=== PATIENT | male | born 1965 | race Caucasian/White ===

== ENCOUNTER 2017-02-16 06:48 | Day surgery (SDC) | payer OTHER ==
[2017-02-12 08:46] VITALS: BMI 26.2
[~2017-02-16 06:48] MED LIST: LACTATED RINGERS 1,000 ML IV SCH; LIDOCAINE 1% 20 ML VIAL (10MG/ML) FOR IV START INTRADERMA PRN
[2017-02-16 07:20] VITALS: TEMP 98.8
[2017-02-16] MEDS ORDERED: PROPOFOL 10 MG/ML 20 ML VIAL IV ONE (07:30)
--- NOTE | 2017-02-16 08:33 | P.PCN ---
Date of Procedure: 02/16/17 Preoperative Diagnosis: Screening colonoscopy Postoperative Diagnosis: Internal hemorrhoids, diverticuli Procedure(s) Performed: Colonoscopy Anesthesia: MAC Surgeon: Leeann Green Estimated Blood Loss (ml): 0 IV fluids (ml): 550 Pathology: none sent Condition: stable Disposition: PACU Indications for Procedure: Screening colonoscopy Operative Findings: Internal hemorrhoids, scattered diverticuli Description of Procedure: Patient was taken to the endoscopy suite and following sedation rectal exam was performed. Patient was noted to have adequate sphincter tone and no masses. Colonoscope was passed through the anus into the rectum was passed through to the sigmoid colon at 20 cm there were some some sharp angulation however the scope was able to be manipulated past this point. Was passed through the sigmoid colon up to splenic flexure transverse colon hepatic flexure right colon down to the area of the cecum. Approximately 7 minutes were taken to withdraw the scope from the cecum. Circumferential observation mucosa did not reveal any lesions of concern in the cecum or right colon. No lesions of concern in the transverse colon or left colon. Scattered diverticuli were noted in the sigmoid colon. The scope was brought down into the rectum where it was retroflexed and internal hemorrhoids identified. Impression: 1. Scattered diverticuli 2. Internal hemorrhoids Plan: 1. Conservative management 2. Repeat scope 7-10 years
--- NOTE | 2017-02-16 08:35 | P.DS ---
Providers Attending physician: Leeann Green Primary care physician: Castro Brandt Plan - Discharge Summary New Discharge Prescriptions: No Action traMADol HCL [Ultram] 50 mg PO BID Lisinopril [Zestril] 20 mg PO DAILY Omeprazole 20 mg PO DAILY Discharge Medication List Lisinopril [Zestril] 20 mg PO DAILY 02/12/17 [History] Omeprazole 20 mg PO DAILY 02/12/17 [History] traMADol HCL [Ultram] 50 mg PO BID 02/12/17 [History] Follow up Appointment(s)/Referral(s): Leeann Green MD [STAFF PHYSICIAN] - As Needed Patient Instructions/Handouts: *Surgery [facility] - (Anesthesia) Endoscopy Discharge Instructions, Colonoscopy (DC) Activity/Diet/Wound Care/Special Instructions: Diverticular diet Do not drive today Discharge Disposition: HOME SELF-CARE
[2017-02-16 08:50] VITALS: BP 128/78; PULSE 84; RESP 18
== END 2017-02-16 09:05 | disposition home or self-care (01) ==
LOC: ORWHC2ENDO 06:48
PROVIDERS: ATTEND Surgery
DX: Z12.11 Encounter for screening for malignant neoplasm of colon (principal); K57.30 Diverticulosis of large intestine without perforation or abscess without bleeding; K64.8 Other hemorrhoids; K21.9 Gastro-esophageal reflux disease without esophagitis; I10 Essential (primary) hypertension; M54.30 Sciatica, unspecified side; Z79.1 Long term (current) use of non-steroidal anti-inflammatories (NSAID); Z79.899 Other long term (current) drug therapy; Z79.891 Long term (current) use of opiate analgesic; F17.290 Nicotine dependence, other tobacco product, uncomplicated
CPT/HCPCS: J2704; G0121